=== PATIENT | male | born 1950 | race Caucasian/White ===

== ENCOUNTER 2023-05-31 15:55 | Inpatient (IN) | payer MEDICARE, SELFPAY ==
--- OUTSIDE RECORDS SUMMARY | 2023-05-31 15:59 | XMS_ITS | Continuity of Care Document ---
Author Name Unknown Address [address] [facility] [place] FULTON [id number] Organization [facility] Phone Care Team Providers Care Technical Consultant Name Role Phone DEANGELO SKINNER Admitting DEANGELO SKINNER Unavailable DEANGELO SKINNER Primary Care DEANGELO SKINNER Primary Attending ALLERGIES AND ADVERSE REACTIONS ALLERGIES AND ADVERSE REACTIONS Code System Allergy Substance Adverse Reaction Date Reaction (Severity) Comment Status Reported By Updated By No Known Allergies RESULTS Patient: ARELY Coon Date of : 1950 LABORATORY RESULTS Information is not available LABORATORY NARRATIVE RESULTS Information is not available RADIOLOGY RESULTS ORDER 100: KNEE 3V LT (LOINC : 17331-3) ORDER DATE: March 29, 2023 3:42:00 PM [facility] PATHOLOGY NARRATIVE RESULTS Information is not available MICROBIOLOGY RESULTS No Micro Labs/Results Exist for Patient BLOOD ADMIN RESULTS Information is not available MEDICATIONS BYRON
--- OUTSIDE RECORDS SUMMARY | 2023-05-31 15:59 | XMS_ITS | Continuity of Care Document ---
Author Name Unknown Address [address] [facility] [place] FULTON [id number] Organization [facility] Phone Care Team Providers Care Rim Roller Setter Name Role Phone DEANGELO SKINNER Admitting DEANGELO SKINNER Unavailable DEANGELO SKINNER Primary Care DEANGELO SKINNER Primary Attending ALLERGIES AND ADVERSE REACTIONS ALLERGIES AND ADVERSE REACTIONS Code System Allergy Substance Adverse Reaction Date Reaction (Severity) Comment Status Reported By Updated By No Known Allergies TREATMENT PLAN DISCHARGE MEDICATIONS Status RXNORM Medication Dose Route Frequency Dates Comments U pdated By Patient discharge medication information is not available. PATIENT OPEN ORDERS Code System Description Frequency Occurrence s Priority [place] [id number] [facility] Knee - left X-ray 3 views ONE TIME 0 Routine March 29, 2023 3:41:00 PM [facility] SUSANNE Dawkins MD [id number] on March 29, 2023 3:51:00 PM [facility] [id number] [facility] Knee - right X-ray 3 views ONE TIME 0 Routine March 29, 2023 3:41:00 PM [facility] SUSANNE Dawkins MD [id number] on March 29, 2023 3:51:00 PM [facility] SCHEDULED PROCEDURES Code System Description Status Scheduled Date Upd ated By Patient scheduled procedure information is not available. MEDICATIONS
--- NOTE | 2023-05-31 16:11 | PC.NURSE ---
received report from keenan at [facility], pt arrived by personal vehicle with . arrived to floor at 1610 via wheelchair
[2023-05-31 16:24] VITALS: BP 183/113; PULSE 84; RESP 20; TEMP 36.6; O2SAT 95; BMI 34.7
--- NOTE | 2023-05-31 17:04 | EXP.HP ---
History of Present Illness *Admission Date: 05/31/23 *Reason for visit:: Dyspnea, transfer from [facility] *History of present illness: Mr. Sullivan is a pleasant 73-year-old gentleman with history of. Denies history of tobacco use, alcohol use. Presented to his PCP for concern for progressive shortness of breath. Shortness of breath has been worse over the past week with exertion. Denies any jose chest pain, nausea, vomiting. Has had a dry nonproductive cough. No syncope or confusion. PCP recommended to go to the ER for further evaluation. Patient was admitted yesterday to [facility] for volume overload and need for diuresis. Found to have hypertensive urgency. Echocardiogram was obtained showing reduced ejection fraction less than 20% and suspected ventricular thrombus. Cardiology at [facility] was consulted for possible transfer and evaluation. Medicine discussed case with hospitalist at [facility] and agreed to accept transfer for new diagnosis of heart failure with reduced ejection fraction, suspected ventricular thrombus, and malignant hypertension. On arrival, patient is on room air but found to be hypertensive with systolic 183/113. Patient was discharged via personal vehicle for transport to our hospital. Currently denies any chest pain. Labs pending. O2 sats 95% on room air. at bedside who assists with history. Patient has no history of surgeries, prior hospitalizations. Home medications include amlodipine, labetalol, HCTZ, Lipitor. No previous cardiac workup or imaging prior to recent hospitalization. [facility] Disclaimer: The information contained in this section may have been updated after the patient was seen, as this information can be updated by other users. Medical History (Updated 05/31/23 @ 17:12 by Toro Omer MD) Hyperlipemia Hypertension Osteoarthritis Surgical History No pertinent past surgical history Family History Family history of myocardial infarction Father Social History Smoking Status: Never smoker second hand exposure: No alcohol intake: never current occupational status: retired Travel in the last 8 weeks: None household members: spouse lives independently: No marital status: Review of Systems Review of Systems Review of systems (narrative): 14 point review of systems performed, pertinent positives and negatives as per HPI Meds Home Medications and Allergies Home Medications Medication Instructions Recorded Confirmed Type amlodipine 5 mg tablet 50 mg PO BID 05/31/23 05/31/23 History atorvastatin 20 mg tablet 20 mg PO DAILY 05/31/23 05/31/23 History labetalol 200 mg tablet 200 mg PO BID 05/31/23 05/31/23 History New Prescriptions to Start Prescriptions: Allergies Allergy/AdvReac Type Severity Reaction Status Date / Time No Known Allergies Allergy Verified 05/31/23 17:45 Exam Data for Last 24 hours Vital signs and Labs for Last 24 Hours: Temp Pulse Resp BP Pulse Ox O2 Del Method 97.9 F 84 20 183/113 H 95 Room Air 05/31/23 16:24 05/31/23 16:24 05/31/23 16:24 05/31/23 16:24 05/31/23 16:24 05/31/23 17:00 I & O for Last 24 hours: Intake & Output 05/28/23 05/29/23 05/30/23 05/31/23 23:59 23:59 23:59 23:59 Weight 97.749 kg Constitutional Constitutional: mild distress, obese, chronically ill appearing and cooperative *Routine HEENT Exam Head: Present normocephalic Eye: Present EOMI and PERRL ENT: Present mucous membranes moist *Routine Neck Exam Neck: Present supple; Absent lymphadenopathy *Routine Respiratory Exam Respiratory: Present CTA bilaterally; Absent rhonchi, wheezes or crackles *Routine Cardiovascular Exam Cardiovascular: Present RRR *Routine Abdominal Exam Abdomin
[2023-05-31 17:15] VITALS: BP 114/70; PULSE 83; RESP 16; TEMP 36.9; O2SAT 97
--- NOTE | 2023-05-31 18:00 | ECG_ITS ---
APPROVED REPORT Exam: Resting ECG HR:80 bpm ECG Measurements Heart Rate 80 AXES DE 155 P 10 QRSd 92 QRS -12 QT 423 T 60 QTc 459 Conclusion SINUS RHYTHM VOLTAGE CRITERIA FOR LVH [MEETS CRITERIA IN ONE OF: R(aVL), S(V1), R(V5), R(V5/V6)+S(V1)] NONSPECIFIC T-WAVE ABNORMALITY ABNORMAL ECG UNCONFIRMED REPORT Electronically signed by : Deuce Berumen MD 06/01/2023 17:11:44
[2023-05-31 18:16] LABS: Basophils % 0.6 % (0.1-2.0); Eosinophils # 0.2 K/mm3 (0.0-0.4); Eosinophils % 2.2 % (0.1-12.0); Hematocrit 41.8 % (42.0-52.0); Hemoglobin 14.5 g/dL (14.1-18.0); Lymphocytes # 1.4 K/mm3 (0.7-4.5); Lymphocytes % 17.3 % (10-50); Mean Corpuscular HGB Conc 34.6 g/dL (31.8-35.4); Mean Corpuscular Hemoglobin 31.6 pg (27.0-31.2); Mean Corpuscular Volume 91.4 fl (80-94); Monocytes # 0.6 K/mm3 (0.1-1.0); Monocytes % 7.5 % (1.7-9.3); Neutrophils # 5.7 K/mm3 (1.8-7.8); Neutrophils % 72.5 % (37.0-80.0); Platelet Count 209 K/mm3 (142-424); Red Blood Count 4.57 M/mm3 (4.60-6.20); Red Cell Distribution Width 13.9 % (11.5-17.5); White Blood Count 7.8 K/mm3 (4.8-10.8)
[2023-05-31 18:27] LABS: Troponin I 0.03 ng/ml (0.00-0.034)
[2023-05-31 18:46] LABS: Thyroid Stimulating Hormone 0.73 uIU/mL (0.465-4.68)
[2023-05-31 18:59] VITALS: BP 167/97; PULSE 81
[2023-05-31 20:00] VITALS: BP 146/78; PULSE 80; PULSE 86; RESP 17; TEMP 36.5; O2SAT 93
[2023-05-31 20:32] LABS: NT Pro Brain Natriuretic Pep. 5940 pg/mL (0-125)
[2023-05-31 20:52] LABS: Alanine Aminotransferase 35 U/L (12-78); Albumin Level 4.4 g/dl (3.5-5.0); Albumin/Globulin Ratio 1.5 (1.1-1.8); Alkaline Phosphatase 95 U/L (38-126); Anion Gap 14.1 mEq/L (5-15); Aspartate Amino Transferase 53 U/L (17-59); Bilirubin,Total 1.3 mg/dl (0.2-1.3); Blood Urea Nitrogen 28 mg/dl (9-20); Calcium 8.6 mg/dl (8.4-10.2); Carbon Dioxide 24 mmol/L (22.0-30.0); Chloride 103 mmol/L (98-107); Creatinine Clearance Estimated 66 mL/min (50-200); Estimated Glomerular Filt Rate 50 ml/min (>60); GFR (African American) 60 ML/MIN (>60); Glucose 111 mg/dl (74-100); Magnesium 1.4 mg/dl (1.6-2.3); Potassium 3.1 mmoL/L (3.5-5.1); Sodium 138 mmol/L (136-145); Total Protein,Serum 7.4 g/dl (6.3-8.2)
[2023-05-31 21:42] LABS: Troponin I 0.03 ng/ml (0.00-0.034)
[2023-05-31 21:48] LABS: Hemoglobin A1C 5.6 % (4.0-6.0)
[2023-06-01] VITALS (28 sets, daily range): BP systolic 102–171; BP diastolic 59–109; PULSE 68–90; RESP 16–22; TEMP 36.4–37; O2SAT 90–97; BMI 34.6
--- NOTE | 2023-06-01 | CA_ITS ---
APPROVED REPORT EXAM: Limited 2D, Doppler, and color-flow Echocardiogram with contrast Optics Technical Officer: Yenny Kitchen CRT Ht: 5 ft 6 in Wt: 215lbs BSA: 2.06 BP: 183/113 mmHg Indications: EF CHECK . EF <20% AT Centre 2D Dimensions LVOT 1.89 cm (M/F) 1.5-2.5 M-Mode Dimensions RVDd 3.10 cm (0.9-2.6) LA Diam 4.60 cm (1.9-4.0) LVDd 5.94 cm (3.5-5.7) Ao Diam 4.00 cm (2.0-3.7) LVDs 5.77 cm (3.5-5.7) IVSd 1.19 cm (0.6-1.1) PWd 0.98 cm (0.6-1.1) EF (Teich) 6.40% FS 2.90% EDV (Teich) 175.90 mL ESV (Teich) 164.60 mL Other Information Study Quality: Fair Conclusion This is a limited TTE to evaluate for LVEF and LV thrombus. Ultrasound enhancing agent was administered. The left ventricle is normal in size. There is severe reduction in global LV systolic function. LVEF is 20%. There is near akinesis of the basal septal and inferoseptal LV gutierrez. No LV thrombus is visualized after administration of ultrasound enhancing agent. Grossly, the right ventricle appears normal in size and systolic function. Electronically signed by : Abby Garland MD 06/01/2023 12:28:23
[2023-06-01 01:20] LABS: Troponin I 0.03 ng/ml (0.00-0.034)
--- NOTE | 2023-06-01 05:03 | PC.NURSE ---
nurse is aware of 0400 B/P
--- NOTE | 2023-06-01 05:03 | PC.NURSE ---
pt has become confused through the night, around 1 am pt walked into the [facility] looking for the bathroom. re-directed pt back to room. pt reported he needed to use the bathroom. pt assisted to the bathroom and pt was trying to sit on toilet with toilet seat up. left pt to use the restroom. spilled pitcher of water was on floor. pt then proceeded to look around the room for a pair of underwear. pt had soiled his underwear. pt stumbled around the room and proceeded to lay across the bed. pt visibly exhausted and short of air. pt re-directed to lay in bed correctly and soiled underwear changed. pt then wanted to sit in recliner. pt assisted to recliner and chair alarm attached and call barakat instructions given. pt able to answer who he is but thinks hes at home. notified [facility] aprn made aware. no new orders received. pt moves all extremities well.
--- NOTE | 2023-06-01 06:49 | PC.NURSE ---
pt is alert and oriented currently. answering all orientation questions correctly.
[2023-06-01 07:43] LABS: Chol/HDL Ratio 4.7 (1-3.5); Cholesterol 183 mg/dl (140-200); HDL Cholesterol 39 mg/dl (40-60); Triglycerides 118 mg/dl (30-150); VLDL Cholesterol 24 mg/dL (0-40)
--- NOTE | 2023-06-01 07:47 | HMH.PHAINT1 ---
Pharmacy Intervention Comments: Med reconciliation completed using external fill history
[2023-06-01 07:53] LABS: Direct LDL Cholesterol 106.23 mg/dL (100-129)
--- NOTE | 2023-06-01 08:05 | EXP.CARD.CON ---
History of Present Illness History of Present Illness Consult date: 06/01/23 Requesting physician: Toro Omer Consult reason: congestive heart failure Chief complaint: SOA History of present illness: Mr. Sullivan is a pleasant 73-year-old gentleman with history of. Denies history of tobacco use, alcohol use. Presented to his PCP for concern for progressive shortness of breath. Shortness of breath has been worse over the past week with exertion. Denies any jose chest pain, nausea, vomiting. Has had a dry nonproductive cough. No syncope or confusion. PCP recommended to go to the ER for further evaluation. Patient was admitted yesterday to [facility] for volume overload and need for diuresis. Found to have hypertensive urgency. Echocardiogram was obtained showing reduced ejection fraction less than 20% and suspected ventricular thrombus. Cardiology at [facility] was consulted for possible transfer and evaluation. Medicine discussed case with hospitalist at [facility] and agreed to accept transfer for new diagnosis of heart failure with reduced ejection fraction, suspected ventricular thrombus, and malignant hypertension. On arrival, patient is on room air but found to be hypertensive with systolic 183/113. Patient was discharged via personal vehicle for transport to our hospital. Currently denies any chest pain. Labs pending. O2 sats 95% on room air. at bedside who assists with history. Patient has no history of surgeries, prior hospitalizations. Home medications include amlodipine, labetalol, HCTZ, Lipitor. No previous cardiac workup or imaging prior to recent hospitalization. The above per Dr. Omer, Hospitalist. The above history confirmed with the patient although he tells me the main reason he went to the ER was because his eyes were watering and his voice was crackling. Denies any chest pain, pressure or tightness. Lying nearly flat in bed without shortness of breath or gasping for air. Confirms no previous known history of cardiac issues. Non-smoker Nondrinker Hypertensive meds since age 31 Hyperlipidemia treated since age approximately 31 years old Father with history of PR in his 60s, he was a smoker EKG is sinus at 80 bpm with voltage criteria for LVH. Nonspecific ST-T abnormalities. Troponins stable at 0.03 (within normal limits). Echocardiogram performed this morning performed with Definity contrast, report pending. [facility] Disclaimer: The information contained in this section may have been updated after the patient was seen, as this information can be updated by other users. Medical History (Updated 06/01/23 @ 08:12 by MARQUISE Richards) Hyperlipemia Hypertension Osteoarthritis Surgical History No pertinent past surgical history Family History Family history of myocardial infarction Father Social History Smoking Status: Never smoker second hand exposure: No alcohol intake: never current occupational status: retired Travel in the last 8 weeks: None household members: spouse lives independently: No marital status: Review of Systems Review of Systems Review of systems:: pertinent systems reviewed and negative unless documented below *Cardiovascular Cardiovascular: Denies chest pain, Reports dyspnea and Reports dyspnea on exertion *Respiratory Respiratory: Reports dyspnea and Reports dyspnea on exertion *Musculoskeletal Musculoskeletal: Reports arthralgias Exam Data for Last 24 hours Vital signs and Labs for Last 24 Hours: Temp Pulse Resp BP Pulse Ox O2 Del Method 97.6 F 85 18 116/67 95 Room Air 06/01/23 07:39 06/01/23 07:39 06/01/23 07:39 06/01/23 07:39 06/01/23 07:39 06/01/23 07:39 Laboratory Results - last 24 hr 05/31/23 17:39: WBC 7.8, RBC 4.57 L,
--- NOTE | 2023-06-01 09:35 | IR_ITS ---
APPROVED REPORT Patient Location: Inpatient Sales Branch Manager: COLEEN Jarrell RT (R) PROCEDURES Left heart catheterization Left ventriculogram Selective coronary angiogram INDICATION New onset cardiomyopathy ejection fraction 20% Informed consent was obtained prior to the procedure. COMPLICATIONS None Estimated Blood Loss: Less than 10 mls TECHNIQUE One percent lidocaine used to anesthetize the right anterior aspect of the wrist. The right radial artery was accessed via the Seldinger technique. A 6 Nigerian sheath was placed in the right radial artery. 2.5 mg of Verapamil, 800 mcg of nitroglycerin, 1mg Lidocaine and 5000 U Heparin were given through the arterial sheath. The papa catheter was also used to perform left heart catheterization, left ventriculogram and selective coronary angiogram. At the end of the procedure the sheath was removed good hemostasis was achieved using Traclet band, patient was transferred to the postop holding area in stable condition. ANGIOGRAPHIC RESULTS The left main artery Has an ostial 50% stenosis and a distal concentric 60% stenosis The left anterior descending artery Has proximal mid vessel 10% luminal irregularities The circumflex artery Nondominant with mild luminal irregularities The right coronary artery Dominant with an ostial 70% stenosis and a proximal calcified 70 to 80% stenosis followed by mid vessel 50% stenosis with distal 30% stenoses The MORROW ventriculogram reveals Dilated ventricle globally hypokinetic ejection fraction 20% The left ventricular end-diastolic pressure 30 mmHg IMPRESSION Severe three-vessel coronary disease as described above Dilated ventricle with severe reduced ejection fraction Elevated LVEDP PLAN 1. Patient requires surgical bypass surgery and should be transferred to [facility] this admission for inpatient bypass surgery 2. Standard therapy for systolic congestive heart failure 3. Recommend further diuresis 4. LDL less than 55 to be achieved with high intensity statin Electronically signed by : John Perez MD 06/01/2023 13:53:20
--- NOTE | 2023-06-01 09:53 | PC.NURSE ---
Home Medications Jean Claude Sullivan Medication Instructions Recorded Confirmed amlodipine 5 mg tablet 5 mg PO DAILY High Blood Pressure 05/31/23 06/01/23 atorvastatin 20 mg tablet 20 mg PO DAILY Cholesterol 05/31/23 05/31/23 labetalol 200 mg tablet 200 mg PO BID High Blood Pressure 05/31/23 05/31/23
--- NOTE | 2023-06-01 14:27 | PC.NURSE ---
Pt. is back to the floor from lab assistant.
--- NOTE | 2023-06-01 17:29 | EXP.DC.SUM ---
General Admission date:: 05/31/23 Discharge date: 06/01/23 HPI HPI HPI: Mr. Sullivan is a pleasant 73-year-old gentleman with history of. Denies history of tobacco use, alcohol use. Presented to his PCP for concern for progressive shortness of breath. Shortness of breath has been worse over the past week with exertion. Denies any jose chest pain, nausea, vomiting. Has had a dry nonproductive cough. No syncope or confusion. PCP recommended to go to the ER for further evaluation. Patient was admitted yesterday to [facility] for volume overload and need for diuresis. Found to have hypertensive urgency. Echocardiogram was obtained showing reduced ejection fraction less than 20% and suspected ventricular thrombus. Cardiology at [facility] was consulted for possible transfer and evaluation. Medicine discussed case with hospitalist at [facility] and agreed to accept transfer for new diagnosis of heart failure with reduced ejection fraction, suspected ventricular thrombus, and malignant hypertension. On arrival, patient is on room air but found to be hypertensive with systolic 183/113. Patient was discharged via personal vehicle for transport to our hospital. Currently denies any chest pain. Labs pending. O2 sats 95% on room air. at bedside who assists with history. Patient has no history of surgeries, prior hospitalizations. Home medications include amlodipine, labetalol, HCTZ, Lipitor. No previous cardiac workup or imaging prior to recent hospitalization. Hospital Course Hospital Course Hospital Course: 73-year-old male initially presented to [facility] with shortness of breath. Echo obtained showing reduced ejection fraction of approximately 16% per report and suspected left ventricular thrombus. We were contacted for transfer request due to need for cardiology eval and further management of new diagnosis of heart failure with reduced ejection fraction. Medicine agreed to admit for further management, cardiology consult, diuresis, further workup. Upon arrival, patient is on room air but appears in some mild distress. Still hypertensive. Initiating diuretic and antihypertensive regimen. Necessitating stepdown level of care. Problems addressed as follows: New onset acute heart failure with reduced ejection fraction Hyperlipidemia Malignant hypertension -Repeat echo obtained at our facility with Definity contrast. No definitive thrombus. Cardiology was consulted. Patient taken for left heart cath. Findings as follows: IMPRESSION Severe three-vessel coronary disease; Dilated ventricle with severe reduced ejection fraction; Elevated LVEDP PLAN 1. Patient requires surgical bypass surgery and should be transferred to [facility] this admission for inpatient bypass surgery 2. Standard therapy for systolic congestive heart failure 3. Recommend further diuresis 4. LDL less than 55 to be achieved with high intensity statin Patient initiated on goal-directed therapy with carvedilol twice daily, Lasix, Jardiance, Entresto. Blood pressure showing improved control on current medication regimen. Will continue medical management while awaiting definitive surgery for bypass. Patient chest pain-free and on room air at this time. Lipid panel obtained during admission, LDL 106, HDL 39. Continue high intensity statin with Lipitor 40 mg nightly Screening labs with TSH of 0.7, A1c of 5.6. Obesity complicates all aspects of care Treated with Lovenox 100 mg every 12 hours for anticoagulation in the setting of heart failure and initially suspected ventricular thrombus. Patient to be transferred for more definitive care. Appreciate 's assistance and treatment. Spent 30 minutes in discharge counseling, documentation, discussion with subspecialist, chart review, and direct care with patient. Exam Data for Last 24 hours Vital signs and Labs for Last 24 Hours: Te
--- NOTE | 2023-06-01 17:38 | PC.NURSE ---
Right wrist pressure cuff removed and no hematoma noted. Area dressed and tegaderm applied.
--- NOTE | 2023-06-01 18:09 | PC.NURSE ---
[facility] called and said they should have a bed available after shift change and a d/c they have a their facility.
--- NOTE | 2023-06-01 20:44 | PC.NURSE ---
Active Medications Amlodipine Besylate (Amlodipine 10mg Tablet) 10 mg PO DAILY [facility] Stop: 07/01/23 08:59 Last Admin: 06/01/23 08:18 Dose: 10 mg Atorvastatin Calcium (Atorvastatin 40mg Tablet) 40 mg PO DAILY [facility] Stop: 07/02/23 08:59 Carvedilol (Carvedilol 12.5mg Tablet) 12.5 mg PO BID [facility] Stop: 06/30/23 20:59 Last Admin: 06/01/23 20:33 Dose: 12.5 mg Empagliflozin (Empagliflozin 10mg Tablet) 10 mg PO DAILY [facility] Stop: 07/01/23 08:59 Last Admin: 06/01/23 08:18 Dose: 10 mg Enoxaparin Sodium (Enoxaparin 100mg/Ml Syringe) 100 mg 1 mg/kg (100 mg) SQ Q12H [facility] Stop: 07/01/23 17:59 Last Admin: 06/01/23 17:02 Dose: Not Given Fentanyl Citrate (Fentanyl 100mcg/2ml Vial) 25 mcg IV Q3MINP PRN PRN Reason: Moderate to Severe Pain (4-10) Stop: 06/01/23 21:35 Last Admin: 06/01/23 13:58 Dose: 50 mcg Fentanyl Citrate (Fentanyl 250mcg/5ml Vial) 50 mcg IV Q3MINP PRN PRN Reason: Moderate to Severe Pain (4-10) Stop: 06/01/23 21:35 Fentanyl Citrate (Fentanyl 250mcg/5ml Vial) 25 mcg IV Q3MINP PRN PRN Reason: Moderate to Severe Pain (4-10) Stop: 06/01/23 21:35 Fentanyl Citrate (Fentanyl 100mcg/2ml Vial) 50 mcg IV Q3MINP PRN PRN Reason: Moderate to Severe Pain (4-10) Stop: 06/01/23 21:35 Flumazenil (Flumazenil 0.1mg/Ml 5ml Vial) 0.2 mg IV NEEDED PRN PRN Reason: Sedation Stop: 06/01/23 21:35 Furosemide (Furosemide 40mg/4ml Vial) 40 mg IV BIDL [facility] Stop: 07/01/23 08:59 Last Admin: 06/01/23 16:33 Dose: 40 mg Sodium Chloride (Sod Chloride 0.9% 500ml Bag) 1,000 mls @ 25 mls/hr IV .Q25H [facility] Stop: 06/02/23 09:48 Last Admin: 06/01/23 13:30 Dose: 25 mls/hr Midazolam HCl (Midazolam Hcl 1mg/1ml 5ml Vial) 1 mg IV Q3MINP PRN PRN Reason: Sedation Stop: 06/01/23 21:35 Last Admin: 06/01/23 13:58 Dose: 2 mg Midazolam HCl (Midazolam 2mg/2ml Vial) 1 mg IV Q3MINP PRN PRN Reason: Sedation Stop: 06/01/23 21:35 Naloxone HCl (Naloxone 0.4mg/Ml Vial) 0.4 mg IV Q5MINP PRN PRN Reason: Decreased Respirations Stop: 06/01/23 21:35 Potassium Chloride (Potassium Chloride 20meq Tab) 20 meq PO BID [facility] Stop: 06/30/23 20:59 Last Admin: 06/01/23 20:33 Dose: 20 meq Sacubitril/Valsartan (Sacubitril/Valsartan 24-26mg Tablet) 2 each PO BID [facility] Stop: 06/30/23 20:59 Last Admin: 06/01/23 20:33 Dose: 2 each Sodium Chloride (Sodium Chloride 0.9% 10ml Flush Syringe) 10 ml IV NEEDED PRN PRN Reason: Maintain IV Site Stop: 07/01/23 07:31 Sodium Chloride (Sodium Chloride 0.9% 10ml Flush Syringe) 10 ml IV NEEDED PRN PRN Reason: Maintain IV Site Stop: 07/01/23 09:46 Spironolactone (Spironolactone 25mg Tablet) 25 mg PO DAILY [facility] Stop: 07/01/23 08:59 Last Admin: 06/01/23 16:34 Dose: 25 mg
--- NOTE | 2023-06-01 21:11 | PC.NURSE ---
REPORT CALLED TO Jayant MESSER RN/NURSE ON 6 [facility].
--- NOTE | 2023-06-02 00:03 | PC.NURSE ---
[id number]. REPORT GIVEN. PATIENT TRANSFERED TO [facility].
== END 2023-06-02 00:05 | disposition short-term general hospital (02) | DRG 682 ==
PROVIDERS: Internal Medicine; Admitting Provider Internal Medicine Adolescent Medicine; PCP Family Medicine; Visit Provider Internal Medicine Adolescent Medicine
PROC: 4A023N7 Measurement of Cardiac Sampling and Pressure, Left Heart, Percutaneous Approach (ICD-10-PCS; principal; 2023-06-01 11:00)
DX: I13.10 Hypertensive heart and chronic kidney disease without heart failure, with stage 1 through stage 4 chronic kidney disease, or unspecified chronic kidney disease; I50.21 Acute systolic (congestive) heart failure; I42.9 Cardiomyopathy, unspecified; N18.2 Chronic kidney disease, stage 2 (mild); M19.90 Unspecified osteoarthritis, unspecified site; E78.2 Mixed hyperlipidemia; I25.10 Atherosclerotic heart disease of native coronary artery without angina pectoris; E66.9 Obesity, unspecified; Z68.34 Body mass index [BMI] 34.0-34.9, adult; E83.42 Hypomagnesemia
CPT/HCPCS: 93452; 36415; 80053; 80061; 83036; 83735; 83880; 84443; 84484; 85025; 93005; 93308; 93458; 99152; C1725; C1769; J1644; J3475; Q9957; Q9967